=== PATIENT | male | born 1930 | race Hispanic/Latino ===

== ENCOUNTER → 2018-01-02 | Outpatient (CLI) | payer MEDICARE ==
[~2018-01-02] MED LIST: ACYC400T PO; APIX5TAB PO; DICY10 PO; LACT10SO PO; LISI40TA4 PO; SIME80TA12 PO
== END | disposition home or self-care (01) ==
LOC: SHCH 09:43
PROVIDERS: ATTEND Internal Medicine Cardiovascular Disease
DX: I65.23 Occlusion and stenosis of bilateral carotid arteries (principal)
CPT/HCPCS: 93880

== ENCOUNTER 2018-05-27 08:05 | Day surgery (SDC) | payer MEDICARE ==
[2018-05-26 10:13] VITALS: BP 151/69
[2018-05-26 10:40] LABS: HEMATOCRIT 34.8 % (42-54); MEAN CORPUSCULAR HEMOGLOBIN 31.7 pg (27.0-33.0); MEAN CORPUSCULAR HGB CONC 33.9 g/dL (32.0-36.0); MEAN CORPUSCULAR VOLUME 93.6 fL (79-99); PLATELET COUNT (AUTO) 242 K/uL (130-400); RED BLOOD CELL COUNT(AUTO) 3.72 MIL/uL (4.50-6.20); RED CELL DISTRIBUTION WIDTH 13.9 % (11.0-15.5); WHITE BLOOD COUNT (AUTO) 7.1 K/uL (4.8-10.8)
[2018-05-26 10:50] LABS: APPEARANCE,URINE Cloudy (CLEAR); BILIRUBIN,URINE Negative (NEGATIVE); COLOR,URINE Yellow (YELLOW); GLUCOSE, URINE (UA) Negative (NEGATIVE); KETONES,URINE Negative (NEGATIVE); LEUKOCYTE ESTERASE ,URINE Large (NEGATIVE); NITRATE,URINE Positive (NEGATIVE); OCCULT BLOOD,URINE Moderate (NEGATIVE); PROTEIN,URINE POS 1+ (NEGATIVE); UROBILINOGEN,URINE 0.2 mg/dL (0.2-1.0)
[2018-05-26 10:52] LABS: CREATININE 1.3 mg/dL (0.5-1.5); POTASSIUM 4.5 mmol/L (3.5-5.1)
[2018-05-26 10:54] LABS: INR 1.08 (0.85-1.15); PARTIAL THROMBOPLASTIN TIME 33.2 SEC (26.3-35.5); PROTHROMBIN TIME 11.3 SEC (9.6-11.6)
[2018-05-26 11:04] LABS: BACTERIA,URINE Rare /HPF (None Seen); SQUAMOUS EPITHELIAL CELL,UR Rare /HPF (0-2); WBC,URINE 51-100 /HPF (0-1)
[~2018-05-27] VITALS: Ht 165.1 cm; Wt 64.1 kg
[2018-05-27] VITALS (13 sets, daily range): BP systolic 140–155; BP diastolic 62–76
[~2018-05-27 08:05] MED LIST changes: -ACYC400T PO; -DICY10 PO; -LACT10SO PO; +ONDA8TAB5 PO
[2018-05-27] MEDS ORDERED: FAMOTIDINE/PF 20 MG/2 ML VIAL IV ONE (08:27)
[2018-05-27] MEDS ORDERED: LACTATED RINGERS 1000ML 1,000 ML IV ONE (08:42)
[2018-05-27] MEDS: CEFAZOLIN SODIUM 1 GM VIAL IVP SCH ×2 (08:55→11:34)
[2018-05-27] MEDS ORDERED: ONDANSETRON HCL 4 MG/2 ML VIAL ONE (09:41)
[2018-05-27] MEDS ORDERED: PROPOFOL 10 MG/ML 20ML VIAL IV ONE (09:41)
[2018-05-27] MEDS ORDERED: LIDOCAINE PF 2% 5ML ABBOJECT ONE (09:41)
[2018-05-27] MEDS ORDERED: EPHEDRINE SULFATE 50 MG/ML AMPULE ONE (09:41)
[2018-05-27] MEDS ORDERED: FENTANYL CITRATE PF 50 MCG/1 ML 2ML VIAL ONE ×2 (09:41→12:08)
[2018-05-27] MEDS ORDERED: DEXAMETHASONE SOD PHOSPHATE 4 MG/ML 1ML VIAL ONE (11:05)
[2018-05-27] MEDS ORDERED: GLYCOPYRROLATE 1 MG/5 ML SYRINGE ONE (11:50)
[2018-05-27] MEDS ORDERED: NEOSTIGMINE 5MG/5ML SYR IV ONE (12:24)
== END 2018-05-27 14:30 | disposition home or self-care (01) ==
LOC: DAH 08:05
PROVIDERS: ATTEND Urology
DX: N20.2 Calculus of kidney with calculus of ureter (principal); I10 Essential (primary) hypertension; H91.92 Unspecified hearing loss, left ear; Z98.890 Other specified postprocedural states; Z85.028 Personal history of other malignant neoplasm of stomach; Z95.0 Presence of cardiac pacemaker; Z86.73 Personal history of transient ischemic attack (TIA), and cerebral infarction without residual deficits; Z79.899 Other long term (current) drug therapy; Z79.01 Long term (current) use of anticoagulants
CPT/HCPCS: 36415; 50590; 74018; 80048; 81001; 85027; 85610; 85730; 87088; 87186; 93005 ×2; A4218; A4600; J0690; J1100; J2001; J2405; J2704; J2710; J3010 ×2; J3490 ×2; J7120

== ENCOUNTER → 2018-06-10 | Outpatient (CLI) | payer MEDICARE | END | disposition home or self-care (01) | LOC: RAH 14:59 | PROVIDERS: ATTEND Urology | DX: N20.1 Calculus of ureter (principal); I10 Essential (primary) hypertension | CPT/HCPCS: 74018; 76100 ==

== ENCOUNTER 2018-08-30 20:50 | Emergency (ER) | payer MEDICARE ==
[2018-08-30] MEDS ORDERED: LISINOPRIL 5 MG TABLET ONE (21:41)
[2018-08-30 22:08] LABS: BASOPHILS % (AUTO) 0.7 % (0.0-5.0); EOSINOPHILS % (AUTO) 5.8 % (0.0-8.0); HEMATOCRIT 36.1 % (42-54); LYMPHOCYTES % (AUTO) 23.6 % (21.0-51.0); MEAN CORPUSCULAR HEMOGLOBIN 31.7 pg (27.0-33.0); MEAN CORPUSCULAR HGB CONC 34.7 g/dL (32.0-36.0); MEAN CORPUSCULAR VOLUME 91.6 fL (79-99); MONOCYTES % (AUTO) 8.8 % (3.0-13.0); NEUTROPHILS % (AUTO) 61.1 % (40.0-77.0); NUCLEATED RED BLOOD CELLS 0.1 % (0.0-0.19); PLATELET COUNT (AUTO) 168 K/uL (130-400); RED BLOOD CELL COUNT(AUTO) 3.94 MIL/uL (4.50-6.20); RED CELL DISTRIBUTION WIDTH 14.6 % (11.0-15.5); WHITE BLOOD COUNT (AUTO) 3.8 K/uL (4.8-10.8)
[2018-08-30 22:10] LABS: APPEARANCE,URINE Clear (CLEAR); BILIRUBIN,URINE Negative (NEGATIVE); COLOR,URINE Yellow (YELLOW); GLUCOSE, URINE (UA) Negative (NEGATIVE); KETONES,URINE Negative (NEGATIVE); LEUKOCYTE ESTERASE ,URINE Negative (NEGATIVE); NITRATE,URINE Negative (NEGATIVE); OCCULT BLOOD,URINE Trace (NEGATIVE); PROTEIN,URINE Trace (NEGATIVE); UROBILINOGEN,URINE 0.2 mg/dL (0.2-1.0)
[2018-08-30 22:17] LABS: CREATININE 1.2 mg/dL (0.5-1.5); POTASSIUM 4.1 mmol/L (3.5-5.1)
[2018-08-30 22:22] LABS: ALBUMIN 3.7 g/dL (3.5-5.0); BILIRUBIN,TOTAL 0.4 mg/dL (0.2-1.0); TOTAL PROTEIN, SERUM 7.3 g/dL (6.0-8.3)
[2018-08-30 22:28] LABS: BACTERIA,URINE None Seen /HPF (None Seen); SQUAMOUS EPITHELIAL CELL,UR 0-2 /HPF (0-2); WBC,URINE 0-1 /HPF (0-1)
[2018-08-30] MEDS ORDERED: CLONIDINE HCL 0.1 MG TABLET ONE (22:56)
== END 2018-08-31 00:36 | disposition home or self-care (01) ==
LOC: EDH 20:50
DX: I16.0 Hypertensive urgency (principal); R51 Headache; C85.90 Non-Hodgkin lymphoma, unspecified, unspecified site; Z90.49 Acquired absence of other specified parts of digestive tract
CPT/HCPCS: 36415; 80053; 81001; 85025

== ENCOUNTER 2018-12-06 08:47 | Emergency (ER) | payer OTHER, MEDICARE | END 2018-12-06 10:56 | disposition home or self-care (01) | LOC: EDH 08:47 | DX: S29.012A Strain of muscle and tendon of back wall of thorax, initial encounter (principal); I10 Essential (primary) hypertension; Z90.49 Acquired absence of other specified parts of digestive tract; Z85.72 Personal history of non-Hodgkin lymphomas; X58.XXXA Exposure to other specified factors, initial encounter; Y93.89 Activity, other specified; Y92.89 Other specified places as the place of occurrence of the external cause; Y99.8 Other external cause status | CPT/HCPCS: 93005 ==

== ENCOUNTER 2019-01-21 08:03 | Emergency (ER) | payer OTHER, MEDICARE ==
[2019-01-21 08:51] LABS: CREATININE 1.3 mg/dL (0.5-1.5); POTASSIUM 4.2 mmol/L (3.5-5.1)
[2019-01-21 09:37] LABS: BASOPHILS % (AUTO) 0.7 % (0.0-5.0); EOSINOPHILS % (AUTO) 1.6 % (0.0-8.0); HEMATOCRIT 37.1 % (42-54); LYMPHOCYTES % (AUTO) 9.3 % (21.0-51.0); MEAN CORPUSCULAR HEMOGLOBIN 31.5 pg (27.0-33.0); MEAN CORPUSCULAR HGB CONC 34.2 g/dL (32.0-36.0); MEAN CORPUSCULAR VOLUME 92.2 fL (79-99); MONOCYTES % (AUTO) 9.1 % (3.0-13.0); NEUTROPHILS % (AUTO) 79.3 % (40.0-77.0); PLATELET COUNT (AUTO) 151 K/uL (130-400); RED BLOOD CELL COUNT(AUTO) 4.02 MIL/uL (4.50-6.20); RED CELL DISTRIBUTION WIDTH 13.6 % (11.0-15.5); WHITE BLOOD COUNT (AUTO) 4.5 K/uL (4.8-10.8)
== END 2019-01-21 10:27 | disposition home or self-care (01) ==
LOC: EDH 08:03
DX: J09.X2 Influenza due to identified novel influenza A virus with other respiratory manifestations (principal); I10 Essential (primary) hypertension; Z85.72 Personal history of non-Hodgkin lymphomas; Z95.1 Presence of aortocoronary bypass graft; Z90.49 Acquired absence of other specified parts of digestive tract; Z98.890 Other specified postprocedural states
CPT/HCPCS: 36415; 71046; 80048; 84484; 85025; 87804; 93005

== ENCOUNTER → 2019-12-30 | Outpatient (CLI) | payer OTHER, MEDICARE ==
[~2019-12-30] MED LIST changes: +ASPI-1005 PO; +ATOR20TA65 PO; +LISI10TA7 PO; -LISI40TA4 PO; +MECL-183 PO; +METO50TA18 PO; -ONDA8TAB5 PO; -SIME80TA12 PO
== END | disposition home or self-care (01) ==
LOC: SHCH 13:06
PROVIDERS: ATTEND Internal Medicine Cardiovascular Disease
DX: I35.2 Nonrheumatic aortic (valve) stenosis with insufficiency (principal); I51.7 Cardiomegaly
CPT/HCPCS: 93306; 93356; 93880

== ENCOUNTER 2021-03-14 12:42 | Observation (INO) | payer OTHER, MEDICARE ==
[~2021-03-14] VITALS: Ht 165.1 cm; Wt 68.7 kg
[2021-03-14 12:42] VITALS: BP 189/85
[~2021-03-14 12:42] MED LIST changes: +LISI10TA24 PO; -LISI10TA7 PO; -MECL-183 PO; +MECL-226 PO
[2021-03-14] MEDS ORDERED: ASPIRIN 325 MG TABLET PO ONE (13:00)
[2021-03-14 13:10] LABS: BASOPHILS % (AUTO) 0.5 % (0.0-5.0); EOSINOPHILS % (AUTO) 4.3 % (0.0-8.0); HEMATOCRIT 38.1 % (42-54); LYMPHOCYTES % (AUTO) 23.8 % (21.0-51.0); MEAN CORPUSCULAR HEMOGLOBIN 32.8 pg (27.0-33.0); MEAN CORPUSCULAR HGB CONC 34.6 g/dL (32.0-36.0); MEAN CORPUSCULAR VOLUME 94.8 fL (79-99); MONOCYTES % (AUTO) 10.8 % (3.0-13.0); NEUTROPHILS % (AUTO) 60.6 % (40.0-77.0); PLATELET COUNT (AUTO) 147 K/uL (130-400); RED BLOOD CELL COUNT(AUTO) 4.02 MIL/uL (4.50-6.20); RED CELL DISTRIBUTION WIDTH 12.9 % (11.0-15.5); WHITE BLOOD COUNT (AUTO) 3.7 K/uL (4.8-10.8)
[2021-03-14 13:34] LABS: B-TYPE NATRIURETIC PEPTIDE 79 pg/mL (0-100)
[2021-03-14 13:35] LABS: INR 1.06 (0.85-1.15); PROTHROMBIN TIME 11.5 SEC (9.6-11.6)
[2021-03-14 13:41] LABS: ALANINE AMINOTRANSFERASE 25 U/L (12-78); ALBUMIN 3.7 g/dL (3.5-5.0); ASPARTATE AMINOTRANSFERASE 19 U/L (10-37); BILIRUBIN,TOTAL 0.3 mg/dL (0.2-1.0); CARBON DIOXIDE 27 mmol/L (21-32); CHLORIDE 105 mmol/L (101-111); CREATINE KINASE, TOTAL 212 U/L (21-232); CREATININE 1.1 mg/dL (0.5-1.5); GLOMERULAR FILTR. RATE CALC 67 mL/min (>60); GLUCOSE,RANDOM 120 mg/dL (70-105); MYOGLOBIN 133 ng/mL (10-92); POTASSIUM 4.2 mmol/L (3.5-5.1); SODIUM SERUM 137 mmol/L (136-145); TOTAL PROTEIN, SERUM 7.5 g/dL (6.0-8.3); TROPONIN I < 0.04 ng/mL (0.00-0.06); UREA NITROGEN, BLOOD 16 mg/dL (7-18)
[2021-03-14] MEDS ORDERED: ASPIRIN 325 MG TABLET ONE (15:25)
[2021-03-14 16:19] VITALS: BP 156/99
[2021-03-14] MEDS ORDERED: NITROGLYCERIN 1GM OINT 1 INCH/1GM TD ONE (17:00)
[2021-03-14] MEDS ORDERED: NITROGLYCERIN 0.4 MG SL TAB SL PRN ×2 (17:00→18:30)
[2021-03-14] MEDS ORDERED: LABETALOL 20MG VIAL IV STA (18:16)
[2021-03-14 18:22] VITALS: BP 170/82
[2021-03-14] MEDS ORDERED: ACETAMINOPHEN 325 MG TAB PO PRN ×2 (18:30)
[2021-03-14] MEDS ORDERED: MORPHINE 4 MG SYG IV PRN (18:30)
[2021-03-14] MEDS ORDERED: APAP-CODEINE 300/30MG TAB PO PRN (18:30)
[2021-03-14] MEDS ORDERED: LACTULOSE 20 GM/30 ML UDCUP PO PRN (18:30)
[2021-03-14] MEDS ORDERED: ONDANSETRON 4MG INJ IV PRN (18:30)
[2021-03-14] MEDS: NITROGLYCERIN 1GM OINT 1 INCH/1GM TD SCH (20:15)
[2021-03-14] MEDS ORDERED: METOPROLOL TARTRATE 25 MG TAB PO SCH (21:00)
[2021-03-14] MEDS ORDERED: ATORVASTATIN 20 MG TABLET PO SCH (21:00)
[2021-03-14 21:12] VITALS: BP 180/79
[2021-03-14] MEDS: FAMOTIDINE 20MG TAB PO SCH (21:18)
[2021-03-14] MEDS: METOPROLOL TARTRATE 25 MG TAB PO SCH (21:18)
[2021-03-14] MEDS: APIXABAN 5 MG TABLET PO SCH (21:22)
[2021-03-15 01:12] VITALS: BP 141/70
[2021-03-15] MEDS: NITROGLYCERIN 1GM OINT 1 INCH/1GM TD SCH ×2 (02:30→09:16)
[2021-03-15 03:04] VITALS: BP 142/70
[2021-03-15 03:20] VITALS: BP 149/87
[2021-03-15] MEDS ORDERED: ZOLP5TAB8 PO (03:44)
[2021-03-15] MEDS ORDERED: ALPR0.5T8 PO (03:44)
[2021-03-15 05:34] LABS: HEMATOCRIT 36.5 % (42-54); MEAN CORPUSCULAR HEMOGLOBIN 31.5 pg (27.0-33.0); MEAN CORPUSCULAR HGB CONC 34.2 g/dL (32.0-36.0); MEAN CORPUSCULAR VOLUME 91.9 fL (79-99); RED BLOOD CELL COUNT(AUTO) 3.97 MIL/uL (4.50-6.20); RED CELL DISTRIBUTION WIDTH 12.6 % (11.0-15.5); WHITE BLOOD COUNT (AUTO) 5.4 K/uL (4.8-10.8)
[2021-03-15 06:05] LABS: CREATININE 1.1 mg/dL (0.5-1.5); POTASSIUM 3.9 mmol/L (3.5-5.1); THYROID STIMULATING HORMONE 2.42 uIU/mL (0.36-3.74)
[2021-03-15 07:38] VITALS: BP 158/66
[2021-03-15] MEDS ORDERED: ASPIRIN 325 MG TABLET PO SCH (09:00)
[2021-03-15] MEDS ORDERED: LISINOPRIL 10 MG TABLET PO SCH ×2 (09:00→15:15)
[2021-03-15] MEDS: FAMOTIDINE 20MG TAB PO SCH (09:14)
[2021-03-15] MEDS: APIXABAN 5 MG TABLET PO SCH (09:14)
[2021-03-15] MEDS: METOPROLOL TARTRATE 25 MG TAB PO SCH (09:14)
[2021-03-15 12:01] VITALS: BP 182/89
[2021-03-15] MEDS ORDERED: ZOLPIDEM TARTRATE 5 MG TAB PO PRN (15:30)
[2021-03-15 15:36] VITALS: BP 181/89
[2021-03-15] MEDS ORDERED: APIXABAN 5 MG TABLET PO SCH (21:00)
[2021-03-16] MEDS ORDERED: LISINOPRIL 40 MG TABLET PO SCH (09:00)
[2021-03-16] MEDS ORDERED: LISINOPRIL 10 MG TABLET PO SCH (09:00)
== END 2021-03-15 18:40 | disposition home or self-care (01) ==
LOC: EDH 13:08 → EDHIP 18:27 → 4CH 03-15 02:50
PROVIDERS: ADMIT Family Medicine; ATTEND Family Medicine
DX: R07.89 Other chest pain (principal); I16.1 Hypertensive emergency; D68.69 Other thrombophilia; E78.5 Hyperlipidemia, unspecified; F41.9 Anxiety disorder, unspecified; I35.2 Nonrheumatic aortic (valve) stenosis with insufficiency; I10 Essential (primary) hypertension; I48.0 Paroxysmal atrial fibrillation; Z85.72 Personal history of non-Hodgkin lymphomas; Z86.73 Personal history of transient ischemic attack (TIA), and cerebral infarction without residual deficits; Z95.0 Presence of cardiac pacemaker; Z79.01 Long term (current) use of anticoagulants
CPT/HCPCS: 36415 ×2; 71045; 80048; 80053; 80061; 82550; 83735; 83874; 83880; 84443; 84484 ×3; 85025; 85027; 85378; 85610; 93005; 93306; 93356; 96374; 99285; G0378 ×23; J3490

== ENCOUNTER → 2021-07-06 | Outpatient (CLI) | payer OTHER, MEDICARE ==
[~2021-07-06] MED LIST changes: +ALPR0.5T8 PO; -ASPI-1005 PO; -ATOR20TA65 PO; +ZOLP5TAB8 PO
== END | disposition home or self-care (01) ==
LOC: LAB 10:33
PROVIDERS: ATTEND Family Medicine
DX: Z01.818 Encounter for other preprocedural examination (principal); I21.9 Acute myocardial infarction, unspecified
CPT/HCPCS: 93005

== ENCOUNTER 2021-08-09 16:41 | Emergency (ER) | payer MEDICARE, OTHER ==
[~2021-08-09] VITALS: Ht 165.1 cm; Wt 69.4 kg
[2021-08-09 16:42] VITALS: BP 142/101
[2021-08-09] MEDS ORDERED: ACET-66 PO (19:10)
== END 2021-08-09 19:39 | disposition home or self-care (01) ==
LOC: EDH 16:41
DX: R07.89 Other chest pain (principal); I11.9 Hypertensive heart disease without heart failure; Z79.01 Long term (current) use of anticoagulants; Z79.899 Other long term (current) drug therapy; Z95.810 Presence of automatic (implantable) cardiac defibrillator; V89.2XXA Person injured in unspecified motor-vehicle accident, traffic, initial encounter; Y93.89 Activity, other specified; Y92.89 Other specified places as the place of occurrence of the external cause; Y99.8 Other external cause status
CPT/HCPCS: 71046; 93005

== ENCOUNTER → 2021-11-14 | Outpatient (CLI) | payer MEDICARE ==
[~2021-11-14] MED LIST changes: +ACET-66 PO
== END | disposition home or self-care (01) ==
LOC: SHCH 12:47
PROVIDERS: ATTEND Internal Medicine Cardiovascular Disease
DX: I35.0 Nonrheumatic aortic (valve) stenosis (principal); I11.9 Hypertensive heart disease without heart failure; I48.0 Paroxysmal atrial fibrillation; E78.5 Hyperlipidemia, unspecified; Z95.0 Presence of cardiac pacemaker
CPT/HCPCS: 93306